=== PATIENT | male | born 1950 | race Caucasian/White ===

== ENCOUNTER → 2021-04-09 14:28 | Outpatient (BNVA) | payer BC, SELFPAY | PROVIDERS: PCP Internal Medicine; Visit Provider Hospitalist ==

== ENCOUNTER 2021-04-24 10:50 | Day surgery (SDC) | payer BC, SELFPAY ==
--- NOTE | ~2021-04-24 | US_ITS ---
PROCEDURE: ULTRASOUND-GUIDED RIGHT THORACENTESIS CLINICAL INFORMATION: Moderate right pleural effusion. COMPARISON: None TECHNIQUE: Following explaining ultrasound-guided right thoracentesis procedure, benefits and risk, a written consent was obtained. Patient was placed sitting upright on ultrasound stretcher and preliminary ultrasound imaging obtained through bilateral posterior lungs. An optimal site was selected along the right posterior chest and marked. The marked site was cleaned and draped in usual sterile manner with 2% chlorhexidine solution. 1% lidocaine was injected at puncture site. Through a small skin incision a 4 [place] AdLemonseh catheter was advanced into the right pleural space. After observing fluid return, stylet was withdrawn and catheter connected to vacuum bottle via connecting cannula. After obtaining all fluid and observing no more fluid return, the catheter was withdrawn. Complete hemostasis achieved at puncture site. Sterile dressing applied postprocedure. Patient tolerated procedure extremely well. FINDINGS: On preliminary ultrasound imaging there is moderate right pleural effusion. No left-sided pleural effusion seen. Approximately 1.6 L of dark sally color fluid was drained from the right pleural space. Part of this fluid was sent to lab for further analysis as per referring physician's orders. US/US drain thoracentesis w image IMPRESSION: Successful ultrasound-guided right thoracentesis performed without immediate complications.
--- NOTE | ~2021-04-24 | XR_ITS ---
EXAMINATION: XR CHEST CLINICAL INFORMATION: Status post right thoracentesis. COMPARISON: None TECHNIQUE: 2 views of the chest were obtained. FINDINGS: There is still small right pleural effusion but no visible pneumothorax seen. Visualized right lung and the entire left lung is expanded and clear. There are surgical mile and median sternotomy sutures from previous CABG. Heart size is borderline enlarged. Pulmonary vascularity is normal. No gross bony abnormality seen. XR/XR chest 2V IMPRESSION: Post right thoracentesis there is no pneumothorax. There is small right pleural effusion present. The left lung is expanded and clear. There is evidence of previous CABG.
[2021-04-24 11:19] VITALS: BMI 28.5
[2021-04-24 11:51] LABS: MANUAL DIFF FLAG NO
[2021-04-24 11:55] LABS: Basophils Percent Auto 0.4 % (0-2); Eosinophils Absolute Auto 0.3 X10*3/uL (0.0-0.4); Eosinophils Percent Auto 3.6 % (0-4); Hematocrit 36.8 % (42.0-52.0); Hemoglobin 12.3 g/dl (14.0-18.0); Imm Gran Abs Auto 0.03 X10*3/uL (0.00-0.03); Imm Gran Pct Auto 0.4 % (0.0-0.4); Lymphocytes Absolute Auto 1.2 X10*3/uL (1.2-4.9); Lymphocytes Percent Auto 14.9 % (20-40); Mean Corpuscular HGB Conc 33.4 g/dl (31.0-36.0); Mean Corpuscular Hemoglobin 33.4 pg (27.0-33.0); Mean Platelet Volume 8.6 fL (9.4-12.4); Monocytes Absolute Auto 1.1 X10*3/uL (0.1-1.2); Monocytes Percent Auto 13.5 % (2-11); Neutrophils Absolute Auto 5.3 x10*3/uL (2.0-8.3); Neutrophils Percent Auto 67.2 % (45-73); Platelet Count 268 X10*3/uL (160-400); Red Blood Count 3.68 X10*6/uL (4.60-5.80); Red Cell Distribution Width 12.2 % (11.0-16.0); White Blood Count 7.9 X10*3/uL (4.8-10.8)
[2021-04-24 12:02] LABS: INTERNATIONAL NORM RATIO 1.1 (0.9-1.1); Prothrombin Time 12.9 SEC (9.9-13.0)
[2021-04-24 12:05] LABS: Partial Thromboplastin Time 31.8 SEC (24.1-38.0)
[2021-04-24 14:10] VITALS: BP 157/63; PULSE 55; RESP 20; TEMP 36.9; O2SAT 100
[2021-04-24] MEDS: Lidocaine HCl 1 % MPF 5 ML VIAL SUBCUT (14:19)
[2021-04-24 14:25] VITALS: BP 151/62; PULSE 63; RESP 20; O2SAT 100
[2021-04-24 14:40] LABS: MN% 92.6 %; PMN% 7.4 %; RBC Pleural Fluid 0.018 X10*3/uL; WBC Pleural Fluid 1.636 X10*3/uL
[2021-04-24 15:02] LABS: Monocytes Pleural Fluid 17 %; Neutrophils Pleural Fluid 1 %
[2021-04-24 15:03] LABS: BF Shift QC OK YES; Eosinophils Pleural Fluid 7 %; Lymphocytes Pleural Fluid 75 %; Man Diluent Bkgrd OK YES; Other Cells Plerual Fl 1 %
--- NOTE | 2021-04-24 15:32 | PC.NURSE ---
1510 PATIENT ATTEMPTING TO EXIT STRETCHER OUT END OF BED I AM LEAVING. I HAVE BEEN HERE ALL DAY. I AM NOT STAYING ANY LONGER. EDUCATED DISCHARGE ORDER WAS FOR 2 HRS POST PROCEDURE EDUCATED IN REASON FOR REMAINING TO BE MONITORED. INSISTING TO DISCHARGE. AMA PAPERWORK SIGNED. 1517 DR. BARLOW AT BEDSIDE. AWARE PATIENT LEAVING AMA
[2021-04-25 07:12] LABS: pH Pleural Fluid 7.49
[2021-04-25 07:34] LABS: LDH Pleural Fluid 238; Total Protein Pleural Fluid 3.7
== END 2021-04-24 15:20 | disposition home or self-care (01) ==
PROVIDERS: Hospitalist; PCP Internal Medicine; Visit Provider Radiology Diagnostic Radiology
DX: J90 Pleural effusion, not elsewhere classified (principal); R91.1 Solitary pulmonary nodule; I48.91 Unspecified atrial fibrillation; Z79.01 Long term (current) use of anticoagulants; Z79.82 Long term (current) use of aspirin; Z79.899 Other long term (current) drug therapy
CPT/HCPCS: 32555; 32557; 36415; 71046; 83615; 83986; 84157; 85025; 85610; 85730; 87071; 87073; 87205; 88112; 89051

== ENCOUNTER → 2021-04-24 10:51 | Day surgery (SDC) | payer BC, SELFPAY | PROVIDERS: PCP Internal Medicine; Visit Provider Radiology Diagnostic Radiology | DX: J90 Pleural effusion, not elsewhere classified (principal); Z53.8 Procedure and treatment not carried out for other reasons ==

== ENCOUNTER 2021-04-29 08:17 | Outpatient (REF) | payer BC, SELFPAY ==
--- NOTE | ~2021-04-29 | CT_ITS ---
EXAMINATION: CT CHEST WITH CONTRAST CLINICAL INFORMATION: Pulmonary nodules COMPARISON: Chest x-ray 04/24/2021 TECHNIQUE: Multidetector volumetric CT imaging of the chest was obtained after the administration of 65 mL of Omnipaque 350 intravenous contrast without immediate adverse reactions. Axial MIP volume rendering provided. Sagittal and coronal reformatted images were obtained. This CT examination was performed using dose optimization techniques as appropriate, variously including the following: *Automated exposure control *Adjustment of mA and/or kV according to patient size (this includes techniques or standardized protocols for targeted exams where dose is matched to indication/reason for exam; i.e. 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 Status post median sternotomy. LUNGS: No endobronchial lesion. There is significant volume loss in the right lower lobe. There is a 4 cm masslike lesion at the right base (image 44/70) on multiplanar reformats (series 5 image 61/102) there is swirling of the bronchovascular structures and associated underlying pleural disease suggestive of round atelectasis. On isolated study cannot exclude underlying mass. Clinical correlation and follow-up is required. Diagnostic thoracentesis would likely be helpful in this regard. Subsegmental atelectasis is noted in the right middle lobe in association with the right effusion. Minor linear areas of scarring at the left base. A 2 mm right upper lobe micronodule (series 4 image 17/70) MEDIASTINUM: Status post median sternotomy for bypass surgery. No mediastinal mass or lymphadenopathy. No thyroid lesion. PLEURA: A moderate-sized right pleural effusion demonstrates parietal pleural thickening and enhancement in lateral loculation consistent with an exudate. Correlate with diagnostic thoracentesis 04/24/2021. AXILLA: No chest wall mass or axillary adenopathy. UPPER ABDOMEN: Cholelithiasis. Atherosclerotic peripheral vascular disease significantly occlusive at the level of the SMA. Diffuse decrease in liver attenuation suggesting hepatic steatosis. No ascites. OSSEOUS STRUCTURES: The sternum is well united. Minor degenerative spine disease. CT/CT chest w con IMPRESSION: 1. There is a 4 cm mass in the partially collapsed right lower lobe. This is indeterminate. CT appearance favors rounded atelectasis but is nonspecific. Correlate with diagnostic thoracentesis results. Persistent associated moderate exudative right effusion. Follow. 2. Coronary artery disease and atherosclerotic peripheral vascular disease. 3. Cholelithiasis and hepatic steatosis. Fleischner guidelines were followed.
[2021-04-29 09:46] LABS: Anion Gap 15 (12-20); Blood Urea Nitrogen 13 mg/dL (9-16); Calcium 9.1 mg/dL (8.4-10.2); Carbon Dioxide 28 mmol/L (22-29); Chloride 98 mmol/L (96-108); Estimated Glomerular Filt Rate > 60; Glucose Random 117 mg/dL (60-115); Potassium 4.8 mmol/L (3.3-5.1); Sodium 136 mmol/L (135-145)
[2021-04-29] MEDS: iohexoL 350 MG/ML 100 ML INFUS..BTL IV (10:11)
== END 2021-04-29 08:18 | disposition home or self-care (01) ==
LOC: HO.CT 08:17
PROVIDERS: Visit Provider Hospitalist
DX: R91.1 Solitary pulmonary nodule (principal); J90 Pleural effusion, not elsewhere classified
CPT/HCPCS: 36415; 71260; 80048; Q9967

== ENCOUNTER → 2021-05-06 10:00 | Outpatient (BNVA) | payer BC, SELFPAY | PROVIDERS: PCP Internal Medicine; Visit Provider Hospitalist ==